=== PATIENT | female | born 1990 | race African-American/Black ===

== ENCOUNTER 2021-03-22 07:39 | Outpatient (REF) | payer OTHER, SELFPAY ==
[2021-03-22 12:11] LABS: Cholesterol 188 mg/dL; Glucose Fasting 106 mg/dL (60-99); HDL Cholesterol 44 mg/dL; LDL Cholesterol Calculated 123 mg/dl; Triglycerides 107 mg/dL
== END 2021-03-22 07:40 | disposition home or self-care (01) ==
LOC: HO.HMGCLDS 07:39
PROVIDERS: PCP Internal Medicine; Visit Provider Internal Medicine
DX: Z00.00 Encounter for general adult medical examination without abnormal findings (principal); E78.5 Hyperlipidemia, unspecified
CPT/HCPCS: 36415; 80061; 82947

== ENCOUNTER 2022-03-20 09:01 | Outpatient (REF) | payer OTHER, SELFPAY ==
[2022-03-20 11:31] LABS: MANUAL DIFF FLAG NO
[2022-03-20 11:47] LABS: Basophils Percent Auto 0.4 % (0-2); Eosinophils Absolute Auto 0.1 X10*3/uL (0.0-0.4); Eosinophils Percent Auto 2.2 % (0-4); Hematocrit 38.9 % (37.0-47.0); Hemoglobin 12.9 g/dl (12.0-16.0); Imm Gran Abs Auto 0.01 X10*3/uL (0.00-0.03); Imm Gran Pct Auto 0.2 % (0.0-0.4); Lymphocytes Percent Auto 37.1 % (20-40); Mean Corpuscular HGB Conc 33.2 g/dl (31.0-35.0); Mean Corpuscular Hemoglobin 28.9 pg (27.0-33.0); Mean Corpuscular Volume 87.2 fL (80.0-98.0); Mean Platelet Volume 11.6 fL (9.4-12.3); Monocytes Absolute Auto 0.5 X10*3/uL (0.1-1.2); Monocytes Percent Auto 9.6 % (2-11); Neutrophils Absolute Auto 2.7 x10*3/uL (2.0-8.3); Neutrophils Percent Auto 50.5 % (45-73); Platelet Count 234 X10*3/uL (160-400); Red Blood Count 4.46 X10*6/uL (4.20-5.50); Red Cell Distribution Width 12.1 % (11.0-16.0); White Blood Count 5.4 X10*3/uL (4.8-10.8)
[2022-03-20 12:31] LABS: Vitamin D 25-OH Total 17.3 ng/mL (>30)
[2022-03-20 12:33] LABS: Alanine Aminotransferase 12 U/L (0-31); Anion Gap 13 (12-20); Aspartate Amino Transferase 16 U/L (5-31); Blood Urea Nitrogen 20 mg/dL (9-16); Calcium 9.1 mg/dL (8.4-10.2); Carbon Dioxide 21 mmol/L (22-29); Chloride 106 mmol/L (96-108); Cholesterol 184 mg/dL; Estimated Glomerular Filt Rate > 60; Glucose Fasting 107 mg/dL (60-99); HDL Cholesterol 54 mg/dL; LDL Cholesterol Calculated 119 mg/dl; Potassium 4.1 mmol/L (3.3-5.1); Sodium 136 mmol/L (135-145); Triglycerides 56 mg/dL
== END 2022-03-20 09:02 | disposition home or self-care (01) ==
LOC: HO.HMGCLDS 09:01
PROVIDERS: Visit Provider Internal Medicine
DX: Z00.01 Encounter for general adult medical examination with abnormal findings (principal)
CPT/HCPCS: 36415; 80048; 80061; 82306; 84450; 84460; 85025

== ENCOUNTER 2022-06-08 09:17 | Outpatient (REF) | payer OTHER, SELFPAY ==
[2022-06-08 11:34] LABS: Glucose Fasting 100 mg/dL (60-99)
[2022-06-08 11:53] LABS: Estimated Average Glucose 114 mg/dL; Hemoglobin A1c % 5.6 %
[2022-06-08 12:01] LABS: Vitamin D 25-OH Total 19.1 ng/mL (>30)
== END 2022-06-08 09:18 | disposition home or self-care (01) ==
LOC: HO.HMGCLDS 09:17
PROVIDERS: PCP Internal Medicine; Visit Provider Internal Medicine
DX: E55.9 Vitamin D deficiency, unspecified (principal); R73.01 Impaired fasting glucose
CPT/HCPCS: 36415; 82306; 82947; 83036

== ENCOUNTER 2023-03-20 09:21 | Outpatient (REF) | payer OTHER, SELFPAY ==
[2023-03-20 12:21] LABS: Cholesterol 194 mg/dL; Glucose Fasting 106 mg/dL (60-99); HDL Cholesterol 51 mg/dL; LDL Cholesterol Calculated 130 mg/dl; Triglycerides 68 mg/dL
[2023-03-20 12:24] LABS: Vitamin D 25-OH Total 18.2 ng/mL (>30)
== END 2023-03-20 09:22 | disposition home or self-care (01) ==
LOC: HO.HMGCLDS 09:21
PROVIDERS: PCP Internal Medicine; Visit Provider Internal Medicine
DX: Z00.00 Encounter for general adult medical examination without abnormal findings (principal); R73.01 Impaired fasting glucose; E55.9 Vitamin D deficiency, unspecified
CPT/HCPCS: 36415; 80061; 82306; 82947

== ENCOUNTER 2023-09-20 13:00 | Outpatient (RCR) | payer BC, SELFPAY | END 2023-09-21 07:57 | disposition home or self-care (01) | LOC: HO.PTCHIC 13:00 | PROVIDERS: PCP Internal Medicine; Visit Provider Orthopaedic Surgery | DX: S82.891D Other fracture of right lower leg, subsequent encounter for closed fracture with routine healing (principal) | CPT/HCPCS: 97110; 97112; 97161; 97530 ==

== ENCOUNTER 2024-03-20 15:22 | Outpatient (AMB) | payer BC, SELFPAY ==
--- NOTE | 2024-03-20 15:57 | A.OFFPC_ITS ---
Vital Signs 03/20/24 15:58 Height 5 ft 7 in Weight 193 lb BMI 30.2 BP 92/60 Blood Pressure Location Lt brachial Position Sitting Pulse 79 Pulse Source Pulse Oximeter Pulse Oximetry (%) 97 Oxygen Delivery Method Room Air Intake Visit Reasons: PE Intake Note: Pt is here today for her PE Allergies No Known Allergies Allergy (Verified 03/20/24 16:24) Medication List - Last Reconciled 03/20/24 by Rosalina Paul MD No Known Home Meds Tobacco use date assessed: 03/20/24 Dental Screening Dental Screen Date: 03/20/24 Did you have a dental visit in the last 12 months?: Yes Did you have a dental problem in the last 6 months where you did not have access to dental care?: Yes Was dental information given to patient?: Patient has dentist HPI PE HPI Details 33-year-old lady with history of vitamin-D deficiency, impaired fasting glucose, here today for physical exam. She has been feeling well, except for intermittent episodes of sudden onset of lightheadedness. Patient states that she would be standing and would feel the onset of lightheadedness, lasting for several seconds. She had 1 episode however during a recent visit to [employer] [place] in she felt extremely dizzy unable to walk straight after getting off a ride at [employer], and it took the rest of the afternoon to recover from her dizziness. She used to go to [facility] for her regular Pap and pelvic exam but has not been seen since 2019. [facility] Medical History Fracture of right fibula Adult general medical exam Impaired fasting glucose Vitamin D deficiency Obesity (BMI 30.0-34.9) Dyslipidemia In vitro fertilization History of in vitro fertilization Infertility Surgical History History of section Family History Father HTN (hypertension) Mother No problems noted. Paternal Grandmother No problems noted. Sister No problems noted. Son No problems noted. Daughter No problems noted. Social History Housing: House Alcohol intake: never Patient Tobacco Use Status: Never used Tobacco e-Cigarette/Vaping Use: Never Used Second Hand Smoke Exposure: No Current occupational status: unemployed Cognitive needs: No Hearing needs: No Vision needs: No Questionnaire PHQ-9 Over the last 2 weeks, how often have you been bothered by any of the following problems? 1. Little interest or pleasure in doing things: not at all 2. Feeling down, depressed, or hopeless: not at all 3. Trouble falling or staying asleep, or sleeping too much: not at all 4. Feeling tired or having little energy: not at all 5. Poor appetite or overeating: not at all 6. Feeling bad about yourself - or that you are a failure or have let yourself or your family down: not at all 7. Trouble concentrating on things, such as reading the newspaper or watching television: not at all 8. Moving or speaking so slowly that other people could have noticed. Or the opposite - being so fidgety or restless that you have been moving around a lot more than usual: not at all 9. Thoughts that you would be better off or of hurting yourself in some way: not at all Total score: 0 Depression Screening Interpretation: Negative Depression Screening Done: Yes 11250 - PHQ-9 Billing: Yes Source: Developed by Drs. Arnie Camilo, Yesy Boudreaux, Davonte Moyer and colleagues, with an educational rodriguez from [employer] Thrive Questionnaire Date Thrive assessed: 03/20/24 I am a: Patient What is your living situation today?: I have a steady place to live Within the past 12 months, did the food you bought not last and you didn't have the money to get more?: Never true Within the past 12 months, did you worry whether your food would run out before you got money to buy more?: Never true Do you have trouble paying for medicines?: No Do you have trouble getting transportation to medical appointments?: No Do you have trouble paying your heating and electricity bill?: No Do you have trouble taking care of your child, family member or friend?: No Do you have trouble with day-to-day activities such as bathing, preparing meals, shopping, managing finances, etc.?: No Are you currently unemployed and looking for a job?: No Are you interested in more education?: No THRIVE Score: 0 AUDIT C Alcohol Use Questionnaire (AUDIT-C) 1. How often do you have a drink containing alcohol?: Never Total Score: 0 ANDREW-7 AMB Questionnaire ANDREW-7 Date ANDREW - 7 assessed: 03/20/24 Feeling nervous, anxious, or on edge: 0 = Not at all Not being able to stop or control worryin = Not at all Worrying too much about different things: 0 = Not at all Trouble relaxin = Not at all Being so restless that it is hard to sit still: 0 = Not at all Becoming easily annoyed or irritable: 0 = Not at all Feeling afraid as if something awful might happen: 0 = Not at all Total ANDREW-7 score (0-4 normal; 5-9 mild; 10-14 moderate; 15-21 severe): 0 Source: Developed by Drs. Arnie Camilo, Yesy Boudreaux, Davonte Moyer and colleagues, with an educational rodriguez from [employer] Review of Systems Const Denies fatigue, Denies fever(s), Denies headache(s), Denies malaise and Denies weakness Eyes Details: Recently seen at [facility] in [place] for her routine eye exam a week ago, no abnormality seen Reports no additional complaints and Denies itchy eyes ENT Details: Gets routine dental prophylaxis every 6 months Reports Normal hearing present, Denies dysphagia, Denies headache(s) and Denies nasal congestion Card Denies chest pain, Denies irregular heart rhythm, Denies lightheadedness, Denies palpitations and Denies dyspnea Resp Denies chest congestion, Denies cough, Denies dyspnea and Denies wheezing GI Denies abdominal pain, Denies melena, Denies bloating, Denies hematochezia, Denies change in bowel habits, Denies dysphagia, Denies heartburn and Denies nausea Denies hematuria, Reports difficulty conceiving, Denies dysuria, Denies urinary incontinence, Denies urinary hesitancy, Denies vaginal discharge and Denies vaginal pruritus Musc Denies back pain, Denies myalgias, Denies arthralgias, Denies joint swelling, Denies muscle cramps, Denies muscle weakness and Denies tingling Skin/Breast Denies breast swelling, Denies breast mass, Denies lesions and Denies rash Neuro Reports Normal hearing present, Denies headache(s), Denies focal weakness, Denies Sensory deficit (Neuro), Denies tingling, Denies paresthesias and Denies weakness Psych Denies abnormal sleep pattern, Denies change in appetite, Denies depression and Denies mood swings Endo Denies cold intolerance, Denies fatigue, Denies polyphagia, Denies polydipsia, Denies polyuria and Denies palpitations [place]/Lymph Denies easy bleeding and Denies easy bruising Aller/Immun Denies itchy eyes, Denies seasonal rhinorrhea and Denies wheezing Physical exam (Primary Care) Vital Signs: Last Vital Signs Pulse 79 03/20/24 15:58 BP 92/60 03/20/24 15:58 Pulse Ox 97 03/20/24 15:58 Oxygen Delivery Method Room Air 03/20/24 15:58 BMI result Body Mass Index 30.2 Tobacco/Smoking Status: Tobacco use Status Tobacco use date assessed 03/20/24 03/20/24 15:59 Patient Tobacco Use Status Never used Tobacco 03/20/24 15:58 e-Cigarette/Vaping Use Never Used 03/20/24 15:58 PHQ-9: PHQ-9 Score PHQ-9: Total score 0 03/20/24 16:25 Depression Screening Interpretation: Negative Thrive Assessment: Date of Thrive Assessment Date Thrive assessed 03/20/24 03/20/24 16:09 Const General: comfortable, no acute distress and alert Orientation/consciousness: patient oriented x3 HENMT Ears: external ears normal, TM's normal bilaterally and EAC's normal General nose exam: Normal external nose present and No nasal discharge present Mouth: Normal oral and palatal mucosa present, oropharynx normal and moist mucous membranes Eyes General: appearance normal, both eyes and all related structures Conjunctivae: conjunctivae normal Sclerae: sclerae normal Pupils: Equal, round and reactive pupils present EOM: EOMs intact bilaterally Neck Neck: Yes full ROM, Yes no lymphadenopathy and Yes supple Chest Chest palpation & inspection: normal inspection of the chest Breast/axilla palpation: normal palpation of the breasts Resp Effort & Inspection: normal respiratory effort and able to speak in complete sentences Auscultation: clear to auscultation bilaterally Cardio Rate: regular rate Rhythm: regular rhythm Heart sounds: S1 normal heart sound present and S2 normal heart sound present GI Palpation (GI): Soft to palpation, nontender and no masses Auscultation: normal bowel sounds Other: She goes to [facility] for her routine Pap and pelvic exam, last Pap done in 2019 showed negative findings Back/Spine/Pelvis Back: No back tenderness Skin General skin exam: no rashes or lesions noted Neuro General: patient oriented x3, gait normal, tone normal, moves all extremities, Normal light touch and pain sensation and no focal motor deficits Cranial nerves: Yes Equal, round and reactive pupils present and Yes Normal hearing present Cognition (Neuro): normal cognition Sensory Exam: No Sensory deficit (Neuro) Extrem General: Yes full ROM, Yes no joint enlargement, Yes no clubbing, cyanosis or edema and Yes no calf tenderness Psych Appearance: grossly normal and well kempt Mental Status: mental status grossly normal Speech and movement: Normal speech and movement present Affect: normal affect Attitude: cooperative Thought process: Normal thought process present Thought content: Normal thought content present Assessment and Plan Assessment & Plan (1) Annual visit for general adult medical examination with abnormal findings: Code(s): Z00.01 - Encounter for general adult medical examination with abnormal findings Plan: Will check appropriate labs. Up-to-date with her dental visit every 6 months and regular eye exams, at least every 2 years. Take adequate calcium in diet and vitamin-D 3 at 2000 IU per cap once a day, in addition to weight-bearing exercises to help maintain good muscle tone and weight control. Instructed to do self-breast exam, and recommended to get yearly mammogram, starting at age 40. Declines for COVID booster or flu shot, up-to-date with Tdap (2) Screening for malignant neoplasm of cervix: Code(s): Z12.4 - Encounter for screening for malignant neoplasm of cervix Plan: Referred to [facility] for her routine Pap and pelvic exam (3) Vitamin D deficiency: Code(s): E55.9 - Vitamin D deficiency, unspecified Plan: Will check vitamin-D level (4) Impaired fasting glucose: Code(s): R73.01 - Impaired fasting glucose Plan: Your fasting blood sugars in the past were elevated above 100 mg/dL. Impaired glucose metabolism increase your risk for developing diabetes mellitus type 2, as well as heart attack and stroke later on. Lifestyle changes that promote weight loss, healthy eating habits, and regular exercise are important, and can prevent the progression to diabetes (5) Intermittent lightheadedness: Code(s): R42 - Dizziness and giddiness Plan: Will check CBC, fasting glucose, thyroid levels Orders: Orders TSH reflex Free T4 03/20/24 E55.9 - Vitamin D deficiency, unspecified, R42 - Dizziness and giddiness, R73.01 - Impaired fasting glucose, Z00.01 - Encounter for general adult medical examination with abnormal findings Alanine Aminotransferase 03/20/24 E55.9 - Vitamin D deficiency, unspecified, R42 - Dizziness and giddiness, R73.01 - Impaired fasting glucose, Z00.01 - Encounter for general adult medical examination with abnormal findings Aspartate Amino Transferase 03/20/24 E55.9 - Vitamin D deficiency, unspecified, R42 - Dizziness and giddiness, R73.01 - Impaired fasting glucose, Z00.01 - Encounter for general adult medical examination with abnormal findings Lipid Panel 03/20/24 E55.9 - Vitamin D deficiency, unspecified, R42 - Dizziness and giddiness, R73.01 - Impaired fasting glucose, Z00.01 - Encounter for general adult medical examination with abnormal findings Vitamin D 25-OH Total 03/20/24 E55.9 - Vitamin D deficiency, unspecified, R42 - Dizziness and giddiness, R73.01 - Impaired fasting glucose, Z00.01 - Encounter for general adult medical examination with abnormal findings Complete Blood Count Auto Diff 03/20/24 E55.9 - Vitamin D deficiency, unspecified, R42 - Dizziness and giddiness, R73.01 - Impaired fasting glucose, Z00.01 - Encounter for general adult medical examination with abnormal findings Basic Metabolic Panel Fasting 03/20/24 E55.9 - Vitamin D deficiency, unspecified, R42 - Dizziness and giddiness, R73.01 - Impaired fasting glucose, Z00.01 - Encounter for general adult medical examination with abnormal findings Referrals VEHICLE CHECK IN CLERK Referral Z12.4 - Encounter for screening for malignant neoplasm of cervix Coding Level of Care Code Est Pt Prev Care 18-39y([id number]) Diagnoses Annual visit for general adult medical examination with abnormal findings Z00.01 Screening for malignant neoplasm of cervix Z12.4 Vitamin D deficiency E55.9 Impaired fasting glucose R73.01 Intermittent lightheadedness R42
[2024-03-20 15:58] VITALS: BP 92/60; PULSE 79; O2SAT 97; BMI 30.2
== END 2024-03-20 16:39 | disposition home or self-care (01) ==
PROVIDERS: PCP Internal Medicine; Visit Provider Internal Medicine
DX: Z00.00 Encounter for general adult medical examination without abnormal findings (principal); E55.9 Vitamin D deficiency, unspecified; R73.01 Impaired fasting glucose; R42 Dizziness and giddiness
CPT/HCPCS: 99395

== ENCOUNTER 2024-03-22 08:01 | Outpatient (REF) | payer BC, SELFPAY ==
[2024-03-22 11:17] LABS: MANUAL DIFF FLAG NO
[2024-03-22 11:21] LABS: Basophils Percent Auto 0.6 % (0-2); Eosinophils Absolute Auto 0.1 X10*3/uL (0.0-0.4); Eosinophils Percent Auto 1.4 % (0-4); Hematocrit 39.6 % (37.0-47.0); Hemoglobin 13.3 g/dl (12.0-16.0); Lymphocytes Absolute Auto 1.9 X10*3/uL (1.2-4.9); Lymphocytes Percent Auto 39.5 % (20-40); Mean Corpuscular HGB Conc 33.6 g/dl (31.0-35.0); Mean Corpuscular Hemoglobin 29.7 pg (27.0-33.0); Mean Corpuscular Volume 88.4 fL (80.0-98.0); Mean Platelet Volume 11.4 fL (9.4-12.3); Monocytes Absolute Auto 0.4 X10*3/uL (0.1-1.2); Monocytes Percent Auto 9.1 % (2-11); Neutrophils Absolute Auto 2.4 x10*3/uL (2.0-8.3); Neutrophils Percent Auto 49.4 % (45-73); Platelet Count 229 X10*3/uL (160-400); Red Blood Count 4.48 X10*6/uL (4.20-5.50); Red Cell Distribution Width 12.2 % (11.0-16.0); White Blood Count 4.8 X10*3/uL (4.8-10.8)
[2024-03-22 11:49] LABS: Alanine Aminotransferase 16 U/L (0-31); Anion Gap 13 (12-20); Aspartate Amino Transferase 17 U/L (5-31); Blood Urea Nitrogen 14 mg/dL (9-16); Calcium 9.5 mg/dL (8.4-10.2); Carbon Dioxide 27 mmol/L (22-29); Chloride 104 mmol/L (96-108); Cholesterol 194 mg/dL (<200); Estimated Glomerular Filt Rate > 60; Glucose Fasting 106 mg/dL (60-99); HDL Cholesterol 55 mg/dL (>40); LDL Cholesterol Calculated 131 mg/dL (<100); Potassium 3.8 mmol/L (3.3-5.1); Sodium 140 mmol/L (135-145); Triglycerides 43 mg/dL (<150)
[2024-03-22 12:09] LABS: TSH reflex Free T4 1.67 uIU/mL (0.32-4.0); Vitamin D 25-OH Total 24.8 ng/mL (>30)
== END 2024-03-22 08:02 | disposition home or self-care (01) ==
LOC: HO.HMGCLDS 08:01
PROVIDERS: PCP Internal Medicine; Visit Provider Internal Medicine
DX: Z00.01 Encounter for general adult medical examination with abnormal findings (principal); E55.9 Vitamin D deficiency, unspecified; R73.01 Impaired fasting glucose; R42 Dizziness and giddiness
CPT/HCPCS: 36415; 80048; 80061; 82306; 84443; 84450; 84460; 85025

== ENCOUNTER 2024-10-22 11:04 | Outpatient (AMB) | payer BC, SELFPAY ==
--- NOTE | 2024-10-22 11:19 | AM.OFFWIN_ITS ---
Intake Vital Signs 10/22/24 11:25 BP 100/62 Blood Pressure Location Rt brachial Position Sitting Pulse 84 Pulse Source Pulse Oximeter Temp 97.5 F Temp Source Oral Pulse Oximetry (%) 98 Oxygen Delivery Method Room Air Intake Visit Reasons: EP ? UTI, abnormal discharge Intake Note: Patient here abnormal discharge, slight blood, dark urine that has been present for about 3-4 days. Patient Tobacco Use Status: Never used Tobacco Allergies No Known Allergies Allergy (Verified 10/22/24 11:25) Do you need a note to return to daycare/school/sports/work: No HPI HPI Comments History of Present Illness Details 34 y/o female patient who presents to [facility] walk in clinic with c/o vaginal discharge associated with lower abdominal cramping x 3 days. She also d oes report Dsyuria and urinary frequency. Sexually active with 1 male partner - she is trying to conceive. LMP: Sep 29. [facility] Medical History (Updated 10/22/24 @ 11:30 by Tessa Landry NP) Vaginitis and vulvovaginitis Fracture of right fibula Adult general medical exam Impaired fasting glucose Vitamin D deficiency Obesity (BMI 30.0-34.9) Dyslipidemia In vitro fertilization History of in vitro fertilization Infertility Surgical History History of section Family History Father HTN (hypertension) Mother No problems noted. Paternal Grandmother No problems noted. Sister No problems noted. Son No problems noted. Daughter No problems noted. Social History Housing: House Alcohol intake: never Patient Tobacco Use Status: Never used Tobacco e-Cigarette/Vaping Use: Never Used Second Hand Smoke Exposure: No Current occupational status: unemployed Cognitive needs: No Hearing needs: No Vision needs: No Review of Systems Const All systems reviewed & are unremarkable except as noted in HPI and below Physical Exam Vital Signs: Last Vital Signs Temp 97.5 F 10/22/24 11:25 Pulse 84 10/22/24 11:25 BP 100/62 10/22/24 11:25 Pulse Ox 98 10/22/24 11:25 Oxygen Delivery Method Room Air 10/22/24 11:25 Const General: cooperative and no acute distress Nutritional Appearance: overweight Orientation/consciousness: patient oriented x3 GI Inspection: Yes Abdominal panniculus present Palpation (GI): Soft to palpation, not firm, Tenderness to palpation present (GI) suprapubicly, no guarding, not rigid and No hepatosplenomegaly present Auscultation: normal bowel sounds General: Yes no CVA tenderness External Female Exam: normal external appearance Speculum Exam - Vagina: normal palpation and abnormal vaginal discharge white and malodorous Speculum Exam - Cervix: normal palpation, Cervical os open, nontender and Other cervical findings present (Small amount of Menstrual blood present. ) Bimanual exam- vagina & uterus: normal palpation, normal palpation, No Cervical tenderness present, non-tender and no cervical motion tenderness OB/external & speculum: Cervical os open Back/Spine/Pelvis Back: no CVA tenderness Neuro General: patient oriented x3 Results AMB Urinalysis, Automated UA Leukoctes 0 Thom/uL Last Edit by Lindy Alaniz [facility] on 10/22/24 11:38 UA Nitrite Negative Last Edit by Lindy Alaniz [facility] on 10/22/24 11:38 UA Urobilinogen 0.2 mg/dL Last Edit by Lindy Alaniz [facility] on 10/22/24 11:38 UA Protein 0 mg/dL Last Edit by Lindy Alaniz [facility] on 10/22/24 11:38 UA pH 5.5 Last Edit by Lindy Alaniz [facility] on 10/22/24 11:38 UA Blood 200 Gennaro/uL Last Edit by Lindy Alaniz [facility] on 10/22/24 11:38 UA Specific [place] 1.030 Last Edit by Lindy Alaniz [facility] on 10/22/24 11:38 UA Ketone Negative Last Edit by Lindy Alaniz [facility] on 10/22/24 11:38 UA Bilirubin 0 mg/dL Last Edit by Lindy Alaniz [facility] on 10/22/24 11:38 UA Glucose 0 mg/dL Last Edit by Lindy Alaniz [facility] on 10/22/24 11:38 Results Reviewed Results Reviewed: Laboratory Last Values Urine pH (Auto) 5.5 10/22/24 11:36 Specific [place] (Auto) 1.030 10/22/24 11:36 Urine Protein (Auto) 0 mg/dL 10/22/24 11:36 Glucose (UA)(Auto) 0 mg/dL 10/22/24 11:36 Urine Ketones (Auto) Negative 10/22/24 11:36 Urine Blood (Auto) 200 Gennaro/uL 10/22/24 11:36 Urine Nitrite (Auto) Negative 10/22/24 11:36 Urine Bilirubin (Auto) 0 mg/dL 10/22/24 11:36 Urine Urobilinogen (Auto) 0.2 mg/dL 10/22/24 11:36 Leukocyte Esterase (Auto) 0 Thom/uL 10/22/24 11:36 Assessment & Plan Assessment & Plan (1) Vaginitis and vulvovaginitis: Code(s): N76.0 - Acute vaginitis Plan: U/A normal. Ordered Metrogel Abstain from intercourse while on treatment. Orders: Orders AMB Urinalysis Automated Today Z13.9 - Encounter for screening, unspecified Medications: New metronidazole 0.75%(37.5mg/5gram) 1 appful vaginal BEDTIME 5 days 70 grams 0RF N76.0 - Acute vaginitis Coding Level of Care Code Est Pt Level 4 (59660) Diagnoses Vaginitis and vulvovaginitis N76.0 Time Spent (min) 20
[2024-10-22 11:25] VITALS: BP 100/62; PULSE 84; TEMP 36.4; O2SAT 98
--- OUTSIDE RECORDS SUMMARY | 2024-10-22 13:22 | XMS_ITS | Referral Summary ---
Author Organization [facility] Address [address] [place] [address] Care Team Providers Care Prompt Care Rn Name Role Phone No, Pcp Primary Care Provider Unavailabl e Allergies No known active allergies Medications mefloquine (LARIAM) 250 mg tablet 1 tablet orally once weekly for 2 weeks before travel, weekly during travel and for 4 weeks after returning home 10 tablet Active Active Problems No known active problems Immunizations Name Administration Dates Next Due Influenza, Injectable, Quadrivalent, Preservativ e Free 08/22/2022 Typhoid Vi Capsular Polysaccharide Vaccine 08/22 Social History Tobacco Use Types Packs/Day Years Used Date Smoking Tobacco: Never Assessed Comments Unknown Sex and Gender Information Value Date Recorded Sex Assigned at Not on file Legal Sex Female 3:14 PM EDT Gender Identity Not on file Sexual Orientation Not on file Last Filed Vital Signs Vital Sign Reading Time Taken Comments Blood Pressure - - Pulse - - Temperature 36.7 ??C (98.1 ??F) 08/22/2022 3:31 PM ES T Respiratory Rate - - Oxygen Saturation - - Inhaled Oxygen Concentration - - Weight 84.9 kg (187 lb 2.7 oz) 08/22/2022 3:31 P M EST Height - - Body Mass Index - - Plan of Treatment Not on file [facility] Care Teams Prompt Care Rn Relationship Specialty Start Date End Date No, Pcp NINI PCP - General 08/22/22
--- OUTSIDE RECORDS SUMMARY | 2024-10-22 13:22 | XMS_ITS | Clinical Summary ---
Author Organization [facility] Address [address] [place] [address] Care Team Providers Care Lacing Operator Name Role Phone No, Pcp Primary Care [...] Mass Index - - Plan of Treatment Health Maintenance Due Date Last Done Comments Cervical Cancer Screening 1988 HIV Screening 1988 HPV and Pap Smear 1988 Hepatitis C Screening 1988 Pap Smear 1988 Varicella Vaccines (1 of 2 - 13+ 2-dose series) 2001 Hepatitis B Vaccines (1 of 3 - 19+ 3-dose series) 2007 COVID-19 Vaccine (3 - 2023-2 5 season) 2024 10/17/2021, 09/19/2021 Influenza Vaccine (#1) 2024 , 07/18/2018 Alcohol/Substance Use Screening 09/24/2024 Depression Screening and Follow-Up 09/24/2024 Social Drivers of Health Annual Screening 09/24/2024 DTaP,Tdap,and Td Vaccines (3 - Td or Tdap) 11/29/2028 11/29/2018, 11/29/2012 RSV Vaccine (60+ years old and patients) (1 - 1-dose 75+ series) 2063 Pneumococcal Vaccine: Pediatric (0-5 Years) and At-Risk Patients (6-64 Years) Aged Out No longer eligible based on patient's age to complete this topic [place] [address] [place] [address] Care Teams Lacing Operator Relationship Specialty Start Date End Date No, Pcp NINI PCP - General 08/22/22
== END 2024-10-22 11:43 | disposition home or self-care (01) ==
PROVIDERS: PCP Internal Medicine; Visit Provider Nurse Practitioner Family
DX: Z13.9 Encounter for screening, unspecified (principal); N76.0 Acute vaginitis

== ENCOUNTER → 2024-10-22 11:04 | Outpatient (BNVA) | payer BC, SELFPAY | PROVIDERS: PCP Internal Medicine | DX: N76.0 Acute vaginitis (principal) | CPT/HCPCS: 81003 ==

== ENCOUNTER 2025-02-21 07:09 | Outpatient (REF) | payer BC, SELFPAY ==
[2025-02-21 12:09] LABS: Estimated Average Glucose 114 mg/dL; Hemoglobin A1c % 5.6 % (<6.0)
[2025-02-21 12:25] LABS: Alanine Aminotransferase 18 U/L (0-31); Anion Gap 11 (12-20); Aspartate Amino Transferase 26 U/L (5-31); Blood Urea Nitrogen 20 mg/dL (9-16); Calcium 9.4 mg/dL (8.4-10.2); Carbon Dioxide 27 mmol/L (22-29); Chloride 105 mmol/L (96-108); Cholesterol 194 mg/dL (<200); Estimated Glomerular Filt Rate > 60; Glucose Fasting 100 mg/dL (60-99); HDL Cholesterol 55 mg/dL (>40); LDL Cholesterol Calculated 125 mg/dL (<100); Potassium 3.8 mmol/L (3.3-5.1); Sodium 139 mmol/L (135-145); Triglycerides 72 mg/dL (<150)
[2025-02-21 13:26] LABS: Vitamin D 25-OH Total 23.1 ng/mL (>30)
== END 2025-02-21 07:10 | disposition home or self-care (01) ==
LOC: HO.HMGCLDS 07:09
PROVIDERS: PCP Internal Medicine; Visit Provider Internal Medicine
DX: E55.9 Vitamin D deficiency, unspecified (principal); R73.01 Impaired fasting glucose; Z13.220 Encounter for screening for lipoid disorders; Z13.6 Encounter for screening for cardiovascular disorders
CPT/HCPCS: 36415; 80048; 80061; 82306; 83036; 84450; 84460

== ENCOUNTER 2025-02-23 12:18 | Outpatient (AMB) | payer BC, SELFPAY ==
--- NOTE | 2025-02-23 12:20 | A.OFFPC_ITS ---
Vital Signs 02/23/25 12:30 Height 5 ft 7 in Weight 200 lb BMI 31.3 BP 100/60 Blood Pressure Location Rt brachial Position Sitting Respiration 16 Pulse 64 Pulse Source Pulse Oximeter Temp 98.7 F Temp Source Oral Pulse Oximetry (%) 98 Intake Visit Reasons: Annual PE/OK Per Zac Intake Note: Pt is here today for her PE Allergies No Known Allergies Allergy (Verified 02/23/25 13:05) Medication List - Last Reconciled 02/23/25 by Rosalina Paul MD No Known Home Meds Tobacco use date assessed: 02/23/25 Dental Screening Dental Screen Date: 02/23/25 Did you have a dental visit in the last 12 months?: Yes Did you have a dental problem in the last 6 months where you did not have access to dental care?: No Was dental information given to patient?: Patient has dentist HPI Annual PE/OK Per Zac HPI Details 58-year-old lady here today for her phys ical exam. She has been feeling well, with no complaints at present time. She goes to [facility] for routine Pap and pelvic exam, , overdue for her repeat exam. Never had any abnormal Pap smears [facility] Medical History (Updated 02/24/25 @ 02:21 by Rosalina Paul MD) Fracture of right fibula Impaired fasting glucose Vitamin D deficiency Obesity (BMI 30.0-34.9) Dyslipidemia In vitro fertilization History of in vitro fertilization Infertility Surgical History History of section Family History Father HTN (hypertension) Mother No problems noted. Paternal Grandmother No problems noted. Sister No problems noted. Son No problems noted. Daughter No problems noted. Social History Housing: House Alcohol intake: never Patient Tobacco Use Status: Never used Tobacco e-Cigarette/Vaping Use: Never Used Second Hand Smoke Exposure: No Current occupational status: unemployed Cognitive needs: No Hearing needs: No Vision needs: No Questionnaire PHQ-9 Over the last 2 weeks, how often have you been bothered by any of the following problems? 1. Little interest or pleasure in doing things: not at all 2. Feeling down, depressed, or hopeless: not at all 3. Trouble falling or staying asleep, or sleeping too much: not at all 4. Feeling tired or having little energy: not at all 5. Poor appetite or overeating: not at all 6. Feeling bad about yourself - or that you are a failure or have let yourself or your family down: not at all 7. Trouble concentrating on things, such as reading the newspaper or watching television: not at all 8. Moving or speaking so slowly that other people could have noticed. Or the opposite - being so fidgety or restless that you have been moving around a lot more than usual: not at all 9. Thoughts that you would be better off or of hurting yourself in some way: not at all Total score: 0 Depression Screening Interpretation: Negative Depression Screening Done: Yes 11535 - PHQ-9 Billing: Yes Source: Developed by Drs. Arnie Camilo, Yesy Boudreaux, Davonte Moyer and colleagues, with an educational rodriguez from [employer]. Thrive Questionnaire Date Thrive assessed: 02/23/25 I am a: Patient What is your living situation today?: I have a steady place to live Within the past 12 months, did the food you bought not last and you didn't have the money to get more?: Never true Within the past 12 months, did you worry whether your food would run out before you got money to buy more?: Never true Do you have trouble paying for medicines?: No Do you have trouble getting transportation to medical appointments?: No Do you have trouble paying your heating and electricity bill?: No Do you have trouble taking care of your child, family member or friend?: No Do you have trouble with day-to-day activities such as bathing, preparing meals, shopping, managing finances, etc.?: No Are you currently unemployed and looking for a job?: No Are you interested in more education?: No Please select the resources that you would like help with: None THRIVE Score: 0 AUDIT C Alcohol Use Questionnaire (AUDIT-C) 1. How often do you have a drink containing alcohol?: Never 3. How often do you have six or more drinks on one occasion?: Never Total Score: 0 ANDREW-7 AMB Questionnaire ANDREW-7 Date ANDREW - 7 assessed: 02/23/25 Feeling nervous, anxious, or on edge: 0 = Not at all Not being able to stop or control worryin = Not at all Worrying too much about different things: 0 = Not at all Trouble relaxin = Not at all Being so restless that it is hard to sit still: 0 = Not at all Becoming easily annoyed or irritable: 0 = Not at all Feeling afraid as if something awful might happen: 0 = Not at all Total ANDREW-7 score (0-4 normal; 5-9 mild; 10-14 moderate; 15-21 severe): 0 Source: Developed by Drs. Arnie Camilo, Yesy Boudreaux, Davonte Moyer and colleagues, with an educational rodriguez from [employer]. ANDREW-7 Assessment Billing ANDREW-7 Assessment Tool: ANDREW-7 Assessment 45747 Review of Systems Const Denies fatigue, Denies fever(s), Denies headache(s), Denies malaise and Denies weakness Eyes Details: Recently seen at the [facility] [place] for her routine eye exam a week ago, no abnormality seen Reports no additional complaints and Denies itchy eyes ENT Details: Gets routine dental prophylaxis every 6 months Reports Normal hearing present, Denies dysphagia, Denies headache(s) and Denies nasal congestion Card Denies chest pain, Denies irregular heart rhythm, Denies lightheadedness, Denies palpitations and Denies dyspnea Resp Denies chest congestion, Denies cough, Denies dyspnea and Denies wheezing GI Denies abdominal pain, Denies melena, Denies bloating, Denies hematochezia, Denies change in bowel habits, Denies dysphagia, Denies heartburn and Denies nausea Denies hematuria, Reports difficulty conceiving, Denies dysuria, Denies urinary incontinence, Denies urinary hesitancy, Denies vaginal discharge and Denies vaginal pruritus Musc Denies back pain, Denies myalgias, Denies arthralgias, Denies joint swelling, Denies muscle cramps, Denies muscle weakness and Denies tingling Skin/Breast Denies breast swelling, Denies breast mass, Denies lesions and Denies rash Neuro Reports Normal hearing present, Denies headache(s), Denies focal weakness, Denies Sensory deficit (Neuro), Denies tingling, Denies paresthesias and Denies weakness Psych Denies abnormal sleep pattern, Denies change in appetite, Denies depression and Denies mood swings Endo Denies cold intolerance, Denies fatigue, Denies polyphagia, Denies polydipsia, Denies polyuria and Denies palpitations [place]/Lymph Denies easy bleeding and Denies easy bruising Aller/Immun Denies itchy eyes, Denies seasonal rhinorrhea and Denies wheezing Physical exam (Primary Care) Vital Signs: Last Vital Signs Temp 98.7 F 02/23/25 12:30 Pulse 64 02/23/25 12:30 Resp 16 02/23/25 12:30 BP 100/60 02/23/25 12:30 Pulse Ox 98 02/23/25 12:30 BMI result Body Mass Index 31.3 Tobacco/Smoking Status: Tobacco use Status Tobacco use date assessed 02/23/25 02/23/25 12:21 Patient Tobacco Use Status Never used Tobacco 02/23/25 12:21 e-Cigarette/Vaping Use Never Used 02/23/25 12:21 PHQ-9: PHQ-9 Score PHQ-9: Total score 0 02/23/25 13:19 Depression Screening Interpretation: Negative Thrive Assessment: Date of Thrive Assessment Date Thrive assessed 02/23/25 02/23/25 12:21 Const General: comfortable, no acute distress and alert Orientation/consciousness: patient oriented x3 HENMT Ears: external ears normal, TM's normal bilaterally and EAC's normal General nose exam: Normal external nose present and No nasal discharge present Mouth: Normal oral and palatal mucosa present, oropharynx normal and moist mucous membranes Eyes General: appearance normal, both eyes and all related structures Conjunctivae: conjunctivae normal Sclerae: sclerae normal Pupils: Equal, round and reactive pupils present EOM: EOMs intact bilaterally Neck Neck: Yes full ROM, Yes no lymphadenopathy and Yes supple Chest Chest palpation & inspection: normal inspection of the chest Breast/axilla palpation: normal palpation of the breasts Resp Effort & Inspection: normal respiratory effort and able to speak in complete sentences Auscultation: clear to auscultation bilaterally Cardio Rate: regular rate Rhythm: regular rhythm Heart sounds: S1 normal heart sound present and S2 normal heart sound present GI Palpation (GI): Soft to palpation, nontender and no masses Auscultation: normal bowel sounds Other: She goes to [facility] for her routine Pap and pelvic exam, last Pap done in 2019 showed negative findings Back/Spine/Pelvis Back: No back tenderness Skin General skin exam: no rashes or lesions noted Neuro General: patient oriented x3, gait normal, tone normal, moves all extremities, Normal light touch and pain sensation and no focal motor deficits Cranial nerves: Yes Equal, round and reactive pupils present and Yes Normal hearing present Cognition (Neuro): normal cognition Sensory Exam: No Sensory deficit (Neuro) Extrem General: Yes full ROM, Yes no joint enlargement, Yes no clubbing, cyanosis or edema and Yes no calf tenderness Psych Appearance: grossly normal and well kempt Mental Status: mental status grossly normal Speech and movement: Normal speech and movement present Affect: normal affect Attitude: cooperative Thought process: Normal thought process present Thought content: Normal thought content present Results Reviewed Results Reviewed: Name: Kasie Reeves Age/Sex: 34/F : 1990 Unit#: [id number] Attend Dr: Rosalina Paul MD Re02/21/25 Status: DEP REF Location: [facility] Disch: SPEC : [id number] ROSAS: 02/21/25 STATUS: COMP REQ : [id number] RECD: 02/21/[address]: Rosalina Paul MD COMP: 02/21/256 ENTERED: 02/21/[address] [facility] [address]: ORDERED: Met Prof Fast, AST, ALT, Lipid Panel, Vitamin D 25-OH Test Result Flag Reference Sodium 139 135-145 mmol/L Potassium 3.8 3.3-5.1 mmol/L CL 105 96-108 mmol/L CO2 27 22-29 mmol/L Gap 11 L 12-20 BUN 20 H 9-16 mg/dL Creat 0.75 0.5-1.4 mg/dL eGFR > 60 Chronic Kidney Disease: Estimated GFR < 60 mL/min/1.73m2 Severe Kidney Disease: Estimated GFR < 15 mL/min/1.73m2 FBS 100 H 60-99 mg/dL A fasting glucose from 100-125 mg/dl is considered impaired (pre-diabetes). CA 9.4 8.4-10.2 mg/dL AST (GOT) 26 5-31 U/L ALT (GPT) 18 0-31 U/L Triglyceride 72 <150 mg/dL Desirable Triglyceride: less than 150 mg/dL Borderline High Triglyceride 150-199 mg/dL High Triglyceride: 200-499 mg/dL Very High Triglyceride: greater than or equal to 5OO mg/dL Cholesterol 194 <200 mg/dL Desirable Cholesterol: less than 200 mg/dL Borderline High Cholesterol: 200-239 mg/dL High Cholesterol: greater than 239 mg/dL LDL Calculated 125 H <100 mg/dL Desirable LDL: less than 100 mg/dL Near Optimal/Above Optimal LDL: 110-129 mg/dL Borderline High LDL: 130-159 mg/dL High LDL: 160-189 mg/dL Very High LDL: greater than or equal to 190 mg/dL HDL 55 >40 mg/dL Desirable HDL: greater than 40 mg/dL Note: This HDL assay may give artificially low results in patients with liver disease. Vitamin D 25-OH 23.1 L >30 ng/mL Health Based Reference Values* < 20 ng/mL Deficient 20-30 ng/mL Insufficient > 30 ng/mL Sufficient Coding Level of Care Code Est Pt Prev Care 18-39y(08575) Diagnoses Impaired fasting glucose R73.01 Annual visit for general adult medical examination with abnormal findings Z00. Vitamin D deficiency E55.9 Additional Codes ANDREW-7 Assessment Billing - ANDREW-7 Assessment Tool: ANDREW-7 Assessment 94415 ([id number]) PHQ-9 - 67137 - PHQ-9 Billing: Yes ([id number]) Assessment & Plan Assessment & Plan (1) Impaired fasting glucose: Code(s): R73.01 - Impaired fasting glucose Category: Medical Plan: Your previous fasting blood sugars were elevated above 100 mg/dL. Impaired glucose metabolism increases the risk for developing diabetes mellitus type 2, as well as heart attack and stroke later on. Lifestyle changes that promotes weight loss, healthy eating habits, and regular exercise are important, and can prevent the progression to diabetes (2) Annual visit for general adult medical examination with abnormal findings: Code(s): Z00.01 - Encounter for general adult medical examination with abnormal findings Plan: Reviewed recent fasting lab results with patient.. Recommended dental visit every 6 months and regular eye exams, at least every 2 years. Take adequate car e dietary calcium, D level on latest lab is low, prescription sent for, in addition to weight-bearing exercises to help maintain good muscle tone and weight control. Instructed to do self-breast exam, and recommended to get yearly mammogram, starting at age 40. Goes to [facility] for routine Pap and pelvic exam which is now overdue, last 1 was done in 2019. Patient states she will make her own appointment. She is up-to-date with her Tdap, reminded to get her yearly flu shot and COVID booster (3) Vitamin D deficiency: Code(s): E55.9 - Vitamin D deficiency, unspecified Category: Medical Plan: Prescription sent for cholecalciferol 74474 units per capsule, to take 1 capsule once a week for the next 3 months your once finished taking prescription, continue taking [id number] vitamin-D 3 at 2000 units per day Medications: New cholecalciferol (vitamin D3) 1,250 mcg PO QWEEK 3 months 13 caps 0RF E55.9 - Vitamin D deficiency, unspecified
[2025-02-23 12:30] VITALS: BP 100/60; PULSE 64; RESP 16; TEMP 37.1; O2SAT 98; BMI 31.3
--- OUTSIDE RECORDS SUMMARY | 2025-02-23 13:23 | XMS_ITS | Referral Summary ---
Author Organization [facility] Address [address] [place] [address] Care Team Providers Care Envelope Folder Name Role Phone No, Pcp Primary Care Provider Unavailabl e Allergies No known active allergies Medications mefloquine (LARIAM) 250 mg tablet 1 tablet orally once weekly for 2 weeks before travel, weekly during travel and for 4 weeks after returning home 10 tablet Active Active Problems No known active problems Immunizations Immunization Administration Dates Next Due Influenza, Injectable, Quadrivalent, [...] Plan of Treatment Not on file [facility] Care Teams Envelope Folder Relationship Specialty Start Date End Date No, Pcp NINI PCP - General 08/22/22
== END 2025-02-23 13:20 | disposition home or self-care (01) ==
LOC: HO.HMCC 12:19
PROVIDERS: PCP Internal Medicine; Visit Provider Internal Medicine
DX: R73.01 Impaired fasting glucose (principal); Z00.01 Encounter for general adult medical examination with abnormal findings; E55.9 Vitamin D deficiency, unspecified

== ENCOUNTER → 2025-02-23 12:18 | Outpatient (BNVA) | payer BC, SELFPAY | PROVIDERS: PCP Internal Medicine; Visit Provider Internal Medicine | DX: Z00.01 Encounter for general adult medical examination with abnormal findings (principal); R73.01 Impaired fasting glucose; E55.9 Vitamin D deficiency, unspecified | CPT/HCPCS: 96127 ==